=== PATIENT | male | born 1995 | race Caucasian/White ===

== ENCOUNTER 2017-01-16 16:43 | Emergency (ER) | payer OTHER ==
[2017-01-16] MEDS ORDERED: NS 1,000 ML IV ONE (17:03)
--- NOTE | 2017-01-16 17:08 | EDPHY ---
H & P Stated Complaint: Abdominal pain-genralized. - Personal History Current Tetanus/Diphtheria Vaccine: Unsure Current Tetanus Diphtheria and Acellular Pertussis (TDAP): Unsure - Medical/Surgical History Hx Asthma: No Hx Chronic Respiratory Disease: No Hx Diabetes: No Hx Cardiac Disease: No Hx Renal Disease: No Hx Cirrhosis: No Hx Alcoholism: No Hx HIV/AIDS: No Hx Splenectomy or Spleen Trauma: No Other PMH: ADHD-Concerta intermit. - Social History Smoking Status: Light smoker Time Seen by Provider: 01/16/17 16:58 HPI/ROS: CHIEF COMPLAINT: Lower abdominal pain x2 weeks HISTORY OF PRESENT ILLNESS: 21-year-old male, [employer] [facility] Student, complaining of waxing waning lower abdominal pain for the past 2 weeks. He notes no definitive pattern, does not appear to be associated with diet or activity. No urinary complaints. Bowel movements have been normal with no melena or hematochezia. No testicular pain. No abdominal or genitalia trauma. Positive appetite. Last ate bagel 3 hours ago and had no subsequent complaints of pain, no nausea or vomiting. At no point has he had nausea or vomiting. No abdominal distension.No back pain. No fever or chills. No flu-like symptoms. PRIMARY CARE PROVIDER: [facility] REVIEW OF SYSTEMS: A ten point review of systems was performed and is negative with the exception of the items mentioned in the HPI PAST MEDICAL & SURGICAL HISTORY: No history of abdominal surgeries or known chronic abdominal pathology SOCIAL HISTORY: self-reported 1 drink of alcohol per day, last drink last evening PHYSICAL EXAM (Prior to examination, patient consented to physical exam, hands were washed and my usual and customary physical exam procedures followed) 1) GENERAL: Well-developed, well-nourished, alert and oriented. Appears to be in no acute distress. 2) HEAD: Normocephalic, atraumatic 3) HEENT: Pupils equal, round, reactive to light bilaterally. Sclera anicteric. Nasopharynx, oropharynx, clear, no lesions. Moist mucous membranes 4) NECK: Full range of motion, no meningeal signs. 5) LUNGS: Clear auscultation bilaterally, no wheezes, no rhonchi, no retractions. 6) HEART: Regular rate and rhythm, no murmur, no heave, no gallop. 7) ABDOMEN: No guarding, no rebound, no focal tenderness, negative McBurney's, negative epigastric pain, negative Youngblood's, negative Rovsing's, negative peritoneal sign, I am unable to elicit any abdominal pain on exam. 8) MUSCULOSKELETAL: Moving all extremities, no focal areas of tenderness, no obvious trauma. No peripheral edema or discoloration. 9) BACK: No CVA tenderness. 10) SKIN: No rash, no petechiae. 11) : Normal male external genitalia, bilateral cremasteric reflex is present , no urethral discharge, no swelling no tenderness. DIFFERENTIAL DIAGNOSIS: My differential diagnosis includes, but is not limited to, acute appendicitis, acute cholecystitis, bowel obstruction, acute pancreatitis, testicular torsion, gastritis and urinary tract infection. (Tess Roberts) Constitutional: Initial Vital Signs Temperature (C) 36.8 C 01/16/17 16:49 Heart Rate 121 H 01/16/17 16:49 Respiratory Rate 16 01/16/17 16:49 Blood Pressure 129/97 H 01/16/17 16:49 O2 Sat (%) 92 01/16/17 16:49 O2 Delivery Mode Room Air Allergies/Adverse Reactions: No Known Allergies Allergy (Unverified 01/16/17 16:53) Home Medications: Medication Instructions Recorded Concerta 01/16/17 Flonase Allergy Relief 01/16/17 Pantoprazole Sodium [Protonix 40mg 40 mg PO DAILY #30 tab 01/16/17 (RX)] Medical Decision Making ED Course/Re-evaluation: 5:04 p.m.: Patient will be given IV hydration for volume depletion. Old medical records reviewed via [employer] showing an emergency department visit at [facility] after he was deemed unarousable at [facility] after drinking heavy amounts of alcohol. 6:13 p.m.: Re-evaluation, discussed the diagnostic results, re-examined his abdomen. No guarding no rebound no McBurney's point pain. I think that acute surgical abdominal pathology, acute appendicitis, bowel obstruction, acute cholecystitis, acute pancreatitis, testicular torsion, less than likely in this patient at this time. I do not think that imaging of abdomen is currently indicated. He was given a GI cocktail and will be started on proton pump inhibitor. Recommended alcohol moderation. Recommend follow up with Gastroenterology. my usual and customary strict abdominal return precautions provided to the patient. He feels comfortable being discharged. (Tess Roberts) Other Provider: PHYSICIAN DOCUMENTATION: The patient was evaluated and managed by the Physician Roll Former and myself. I have reviewed the chart and agree with the findings and plan of care as documented. In addition, I examined the patient myself at 1720. History confirmed as last alcohol yesterday does have a history of heavy ingestion. Physical findings as follows: No McBurney's point tenderness, no rebound or guarding.. I am the secondary supervising physician. (Haroon Roper) - Data Points Laboratory Results: Laboratory Results 01/16/17 17:05 01/16/17 17:05 01/16/17 01/16/17 01/16/17 17:55 17:05 17:05 WBC 8.97 10^3/uL 10^3/uL (3.80-9.50) RBC 5.42 10^6/uL 10^6/uL (4.40-6.38) Hgb 16.1 g/dL g/dL (13.7-17.5) Hct 46.0 % % (40.0-51.0) MCV 84.9 fL fL (81.5-99.8) MCH 29.7 pg pg (27.9-34.1) MCHC 35.0 g/dL g/dL (32.4-36.7) RDW 12.2 % % (11.5-15.2) Plt Count 298 10^3/uL 10^3/uL (150-400) MPV 9.8 fL fL (8.7-11.7) Neut % (Auto) 42.8 % % (39.3-74.2) Lymph % (Auto) 31.1 % % (15.0-45.0) [place] % (Auto) 7.6 % % (4.5-13.0) Eos % (Auto) 17.4 % H % (0.6-7.6) Baso % (Auto) 0.4 % % (0.3-1.7) Nucleat RBC Rel Count 0.0 % % (0.0-0.2) Absolute Neuts (auto) 3.84 10^3/uL 10^3/uL (1.70-6.50) Absolute Lymphs (auto) 2.79 10^3/uL 10^3/uL (1.00-3.00) Absolute Monos (auto) 0.68 10^3/uL 10^3/uL (0.30-0.80) Absolute Eos (auto) 1.56 10^3/uL H 10^3/uL (0.03-0.40) Absolute Basos (auto) 0.04 10^3/uL 10^3/uL (0.02-0.10) Absolute Nucleated RBC 0.00 10^3/uL 10^3/uL (0-0.01) Immature Gran % 0.7 % % (0.0-1.1) Immature Gran # 0.06 10^3/uL 10^3/uL (0.00-0.10) Sodium 141 mEq/L mEq/L (134-144) Potassium 3.9 mEq/L mEq/L (3.5-5.2) Chloride 101 mEq/L mEq/L (97-110) Carbon Dioxide 26 mEq/l mEq/l (22-31) Anion Gap 14 mEq/L mEq/L (8-16) BUN 19 mg/dL mg/dL (7-23) Creatinine 1.1 mg/dL mg/dL (0.7-1.3) Estimated GFR > 60 Glucose 90 mg/dL mg/dL (70-100) Calcium 9.9 mg/dL mg/dL (8.5-10.4) Total Bilirubin 0.6 mg/dL mg/dL (0.1-1.4) Conjugated Bilirubin 0.3 mg/dL mg/dL (0.0-0.5) Unconjugated Bilirubin 0.3 mg/dL mg/dL (0.0-1.1) AST 27 IU/L IU/L (17-59) ALT 41 IU/L IU/L (21-72) Alkaline Phosphatase 59 IU/L IU/L (38-126) Total Protein 8.0 g/dL g/dL (6.3-8.2) Albumin 4.8 g/dL g/dL (3.5-5.0) Lipase 60.0 IU/L IU/L (23-300) Urine Color YELLOW Urine Appearance CLEAR Urine pH 6.0 (5.0-7.5) Ur Specific [place] 1.028 (1.002-1.030) Urine Protein NEGATIVE (NEGATIVE) Urine Ketones NEGATIVE (NEGATIVE) Urine Blood NEGATIVE (NEGATIVE) Urine Nitrate NEGATIVE (NEGATIVE) Urine Bilirubin NEGATIVE (NEGATIVE) Urine Urobilinogen NEGATIVE EU EU (0.2-1.0) Ur Leukocyte Esterase NEGATIVE (NEGATIVE) Urine RBC 1-3 /hpf /hpf (0-3) Urine WBC 1-3 /hpf /hpf (0-3) Ur Epithelial Cells TRACE /lpf /lpf (NONE-1+) Urine Mucus TRACE /lpf /lpf (NONE-1+) Urine Glucose NEGATIVE (NEGATIVE) Medications Given: Discontinued Medications Sodium Chloride (Ns) 1,000 mls @ 0 mls/hr IV ONCE ONE PRN Reason: Wide Open Stop: 01/16/17 17:04 Last Admin: 01/16/17 17:05 Dose: 1,000 mls Miscellaneous Medication (Gi Cocktail) 45 ml PO EDNOW ONE Stop: 01/16/17 18:10 Last Admin: 01/16/17 18:15 Dose: 45 ml Departure - Departure Disposition: Home, Routine, Self-Care Clinical Impression: Abdominal pain Qualifiers: Abdominal location: generalized Qualified Code(s): R10.84 - Generalized abdominal pain Condition: Good Instructions: Acute Abdominal Pain (ED) Additional Instructions: Seek immediate medical attention if you develop new or worsening symptoms, if you develop fevers, chills, inability to tolerate oral intake or any other symptoms that concerns you. Referrals: Marcus Gudino MD, FACG [Medical Doctor] - 5-7 days, call for appt. (Dr. Marcus Gudino is a golf [employer] head former) Prescriptions: Pantoprazole Sodium [Protonix 40mg (RX)] 40 mg PO DAILY #30 tab
[2017-01-16 17:14] LABS: % IMMATURE GRANULYOCYTES 0.7 % (0.0-1.1); ABSOLUTE IMMATURE GRANULOCYTES 0.06 10^3/uL (0.00-0.10); ADD DIFF? NO; ADD MORPH? NO; ADD SCAN? NO; ATYPICAL LYMPHOCYTE FLAG 20 (0-99); FRAGMENT RBC FLAG 0 (0-99); HEMOGLOBIN 16.1 g/dL (13.7-17.5); LEFT SHIFT FLG 0 (0-99); LIPEMIA HEMOLYSIS FLAG 90 (0-99); MEAN CELL HEMOGLOBIN 29.7 pg (27.9-34.1); MEAN CELL VOLUME 84.9 fL (81.5-99.8); MEAN PLATELET VOLUME 9.8 fL (8.7-11.7); PLATELET CLUMPS FLAG 0 (0-99); PLATELET COUNT 298 10^3/uL (150-400); RED BLOOD CELL COUNT 5.42 10^6/uL (4.40-6.38); RED CELL DISTRIBUTION WIDTH 12.2 % (11.5-15.2)
[2017-01-16 18:06] LABS: ALANINE AMINOTRANSFERASE 41 IU/L (21-72); ALBUMIN 4.8 g/dL (3.5-5.0); ALKALINE PHOSPHATASE 59 IU/L (38-126); ANION GAP 14 mEq/L (8-16); ASPARTATE AMINOTRANSFERASE 27 IU/L (17-59); BILIRUBIN,TOTAL 0.6 mg/dL (0.1-1.4); BILIRUBIN-CONJUGATED 0.3 mg/dL (0.0-0.5); BILIRUBIN-UNCONJUGATED 0.3 mg/dL (0.0-1.1); CALCIUM 9.9 mg/dL (8.5-10.4); CARBON DIOXIDE 26 mEq/l (22-31); CHLORIDE 101 mEq/L (97-110); CREATININE 1.1 mg/dL (0.7-1.3); GLOMERULAR FILTRATION RATE > 60; GLUCOSE 90 mg/dL (70-100); POTASSIUM 3.9 mEq/L (3.5-5.2); SODIUM 141 mEq/L (134-144)
[2017-01-16] MEDS ORDERED: MAALOX/LIDO/HYOSC GI COCKTAIL 55 ML BOTTLE PO ONE (18:09)
[2017-01-16 18:12] LABS: COLOR YELLOW; LEUKOCYTE ESTERASE,URINE NEGATIVE (NEGATIVE); NITRITE,URINE NEGATIVE (NEGATIVE)
[2017-01-16 18:15] LABS: MUCUS TRACE /lpf (NONE-1+)
[2017-01-16 18:50] VITALS: BP 120/72; PULSE 68; RESP 20; TEMP 98.1; O2SAT 98
== END 2017-01-16 18:49 | disposition home or self-care (01) ==
DX: R10.84 Generalized abdominal pain (principal); F17.200 Nicotine dependence, unspecified, uncomplicated